=== PATIENT | female | born 2000 ===

== ENCOUNTER 2024-01-19 10:50 | Emergency (ER) | payer OTHER, SELFPAY ==
--- NOTE | ~2024-01-19 | XR_ITS ---
EXAMINATION: XR CHEST CLINICAL INFORMATION: Cough, congestion COMPARISON: None available. TECHNIQUE: 2 views of the chest were obtained. FINDINGS: No airspace consolidation or pneumothorax. Hilar regions and pulmonary vascularity unremarkable. Curvilinear region of atelectasis or lung vessel projecting toward the right base. The pleural surfaces are clear. Small nodular density projects toward the right base, superimposing the anterior right fourth rib measuring 3.5 mm. This could potentially reflect a granuloma or a bony density. XR/XR chest 2V IMPRESSION: No acute consolidation or pneumothorax. Projection of a blood vessel versus curvilinear atelectatic change toward the right base. Small nodular density projecting toward the right base could reflect a bony density or possibly a granuloma. Close follow-up suggested to assess. Electronically signed by: Jacky Yen MD 01/19/2024 01:47 PM EDT RP
[2024-01-19 11:58] VITALS: BP 125/70; PULSE 64; RESP 19; TEMP 36.6; O2SAT 99; BMI 30.7
--- NOTE | 2024-01-19 12:01 | ED_ITS ---
HPI - General Adult General Chief complaint: Upper Respiratory Symptoms Stated complaint: flu like symptoms Time Seen by Provider: 01/19/24 12:12 Source: patient, RN notes reviewed and old records reviewed Mode of arrival: ambulatory History of Present Illness ED Provider: Cordelia Del Castillo PA-C HPI narrative: 23-year-old female with no significant past medical history presenting to the ED complaining of URI symptoms x5 days with fever T-max 101 degrees, body aches/myalgias, chills, cough, mild SOB, sore throat, congestion/rhinorrhea. + sick contacts. Denies fever today, travel, chest pain, abdominal pain, decrea sed p.o. intake Related Data Previous Rx's ?Medication ?Instructions ?Recorded fluticasone propionate 50 2 spray intranasal DAILY #16 grams 01/19/24 mcg/actuation nasal spray,suspension (Flonase Allergy Relief) prednisone 20 mg tablet 40 mg (2 x 20 mg) PO DAILY 5 days 01/19/24 #10 tabs Allergies Allergy/AdvReac Type Severity Reaction Status Date / Time shrimp Allergy Anaphylaxis Verified 01/19/24 12:00 watermelon Allergy Anaphylaxis Verified 01/19/24 12:00 Review of Systems Review of Systems: Yes all other systems are reviewed and are negative Constitutional: Constitutional: Reports as per [facility] Past Medical History Attestation statement: The following information was validated with the patient. Source: old records reviewed Social History Social History Unable to assess alcohol history related to: Unknown Use of substances other than those prescribed or required for medical reasons: Unknown Advance Directives: No Do you have a plan to hurt others: No Plan Physical Exam ED Vital Signs: Vital Signs - 24 hr 01/19/24 11:58 01/19/24 13:54 01/19/24 13:55 Temperature 98 F 97.7 F Pulse Rate 64 76 Respiratory Rate 19 16 Blood Pressure 125/70 Pulse Oximetry 99 98 98 Oxygen Delivery Method Room Air Room Air Room Air Oxygen Flow Rate 98 01/19/24 14:25 Temperature 98.9 F Pulse Rate 80 Respiratory Rate 16 Blood Pressure 128/68 Pulse Oximetry 98 Oxygen Delivery Method Room Air Oxygen Flow Rate BMI result Body Mass Index 30.7 Const General: cooperative, healthy appearing and no acute distress Orientation/consciousness: patient oriented x3 Limitations: no limitations HENMT Head: Yes normal to inspection and Yes atraumatic Ears: hearing grossly normal bilaterally, external ears normal, TM's normal b ilaterally and mastoids normal General nose exam: Normal external nose present Face and sinus: Yes normal facial exam Mouth: no drooling Throat: Yes uvula midline, No peritonsillar mass, Yes posterior oropharynx abnormal (Mild erythema), No uvula laterally displaced and No uvular edema Eyes General: appearance normal, both eyes and all related structures EOM: EOMs intact bilaterally Neck Neck: Yes normal visual inspection and Yes no meningeal signs Resp Effort & Inspection: normal respiratory effort, no respiratory distress, no stridor and not tachypneic Auscultation: clear to auscultation bilaterally, no crackles, no rales, no rhonchi and no wheezes Cardio Rate: regular rate Heart sounds: S1 normal heart sound present and S2 normal heart sound present Skin Rashes: no rashes Wounds: no wounds Neuro General: patient oriented x3, tone normal and no meningeal signs Cranial nerves: Yes CN's II-XII intact bilaterally Gait exam (Neuro): Normal gait present Extrem General: Yes normal to inspection Course Course Course Narrative: RME: 23-year-old female presents to ED for UR symptoms for 5 days. Patient states fever, body aches, chills, and night sweats. Physical exam benign. SARs strep ordered. -1418--COVID/flu/RSV and rapid strep negative XR chest 2V IMPRESSION: No acute consolidation or pneumothorax. Projection of a blood vessel versus curvilinear atelectatic change toward the right base. Small nodular density projecting toward the right base could reflect a bony density or possibly a granuloma. Close follow-up suggested to assess. > recommended repeat outpatient x-ray in 1 week when symptoms resolve. Results discussed with patient including worrisome signs and symptoms and strict return precautions, and when to return to the emergency department. They verbalized understanding and feel safe for discharge at this time. Medications Administered Discontinued Medications Generic Name Dose Route Start Last Admin Trade Name Freq PRN Reason Stop Dose Admin Acetaminophen 650 mg 01/19/24 14:02 01/19/24 14:06 Acetaminophen 325 Mg Tablet PO 01/19/24 14:03 650 mg ONCE ONE Administration Lidocaine HCl 5 ml 01/19/24 14:02 01/19/24 14:06 Lidocaine Hcl Viscous 2 % 15 Ml Solution MUCOUS MEM 01/19/24 14:03 5 ml ONCE ONE Administration Medical Decision Making Medical Decision Making [facility] Narrative: 23-year-old female with no significant past medical history presenting to the ED complaining of URI symptoms x5 days with fever T-max 101 degrees, body aches/flor lgias, chills, cough, mild SOB, sore throat, congestion/rhinorrhea. On exam vital signs stable, NAD, nontoxic appearing, physical exam as noted above with posterior oropharyngeal erythema, lungs CTA. Concern for viral illness vs strep pharyngitis vs pneumonia vs bronchitis Plan: Viral testing, rapid strep, CXR, symptomatic remedies Please refer to course for remaining clinical decision making, interpretation of labs/imaging results, and discussions with consultants and/or family members. Differential Diagnosis Differential Diagnoses: The differential diagnosis associated with the presentation includes As above Lab Data [facility] Lab Attestation statement: I reviewed the patient's lab results. Labs: Lab Results 01/19/24 Range/Units 12:06 Influenza Type A (PCR) NEGATIVE (Negative) Influenza Type B (PCR) NEGATIVE (Negative) RSV RNA Qual (PCR) NEGATIVE (Negative) SARS-CoV-2 RNA (RT-PCR) NEGATIVE (Negative) S. pyogenes GrpA NILSA Negative (Negative) Independent Interpretation I performed an independent interpretation of an: Plain X-Ray Radiology Impression Discussion of test interpretation with radiology: I have reviewed the radiologist's reading. External Record Review External record reviewed: Inpatient record, Office record, Outpatient record, Prior outpatient labs, Prior outpatient radiology, Primary care record and Outside ED record Tests considered The following testing was considered but not selected: As above Prescription Management I considered prescription management with: Pain Medication and Antibiotic Chronic Conditions Patient?s care impacted by: Other Social Determinants Patient?s care significantly limited by Social Determinants of Health including: Other Social Determinant of Health Discharge Plan Discharge Clinical Impression: Upper respiratory infection Patient Disposition: Home, Self-Care Instructions: Viral Syndrome (ED) Additional Instructions: You tested negative for COVID, flu, RSV, strep throat Your x-ray does not show pneumonia > we recommend repeat x-ray in 1 week when symptoms are improved Prednisone as a steroid please take as prescribed Flonase as a nasal decongestant If her symptoms persist or worsen, you have constant worsening shortness of breath, chest pain, headache, congestion, or fever unresolved with Tylenol/Motrin return to the emergency department You have a virus No antibiotics are indicated at this time Make sure you are staying hydrated. Drink plenty of fluids. Rest Alternate Tylenol and Motrin at home as needed for body aches and fever Follow-up with your doctor. If symptoms persist or worsen return to the emergency department *If you are a child & not tolerating liquid or urinating for more than 6 hours, or fevers are uncontrolled with medications at home, return to the emergency department* Prescriptions: New prednisone 20 mg tablet 40 mg PO DAILY 5 Days Qty: 10 0RF fluticasone propionate [Flonase Allergy Relief] 50 mcg/actuation spray,suspension 2 spray intranasal DAILY Qty: 16 0RF Rx Instructions: administer into each nostril Referrals: Physician,Kamryn J [Primary Care Provider] - 5 days Stand Alone Forms: Work/School Release Interventions: ED Discharge Assessment Last Done: 01/19/24 14:25 Discharge Date/Time: 01/19/24 14:26 Print Language: Turkmen
[2024-01-19 12:36] LABS: IDNOW Serial# 08D9AD1C; Strep A Nucleic Acid Negative (Negative)
[2024-01-19 12:59] LABS: Influenza A PCR NEGATIVE (Negative); Influenza B PCR NEGATIVE (Negative); Resp Syncy Virus RNA Qual PCR NEGATIVE (Negative); SARS COV2 PCR INHOUSE NEGATIVE (Negative)
[2024-01-19 13:54] VITALS: PULSE 76; RESP 16; TEMP 36.5; O2SAT 98
[2024-01-19 13:55] VITALS: O2SAT 98
[2024-01-19] MEDS: Lidocaine HCl Viscous 2 % 15 ML SOLUTION 5 ML MUCOUS MEM (14:06)
[2024-01-19] MEDS: Acetaminophen 325 MG TABLET 650 MG PO (14:06)
[2024-01-19 14:25] VITALS: BP 128/68; PULSE 80; RESP 16; TEMP 37.2; O2SAT 98
== END 2024-01-19 14:26 | disposition home or self-care (01) ==
PROVIDERS: Physician Assistant; Emergency Provider Emergency Medicine
DX: J06.9 Acute upper respiratory infection, unspecified (principal); R05.9 Cough, unspecified; R50.9 Fever, unspecified; R06.02 Shortness of breath; J02.9 Acute pharyngitis, unspecified; Z03.818 Encounter for observation for suspected exposure to other biological agents ruled out
CPT/HCPCS: 0241U; 71046; 87651; 99283; 99284